=== PATIENT | female | born 1955 | race Asian ===

== ENCOUNTER 2018-12-10 09:31 | Inpatient (IN) | payer MEDICARE, OTHER ==
[2018-12-10] VITALS (7 sets, daily range): BP systolic 105–132; BP diastolic 47–74
[~2018-12-10] VITALS: Ht 160 cm; Wt 83.5 kg
[2018-12-10] MEDS ORDERED: ASPIRIN 81MG TABLET PO ONE (10:00)
[2018-12-10] MEDS ORDERED: HEPARIN 5000 UNITS/ML VIAL IV ONE (10:15)
[2018-12-10] MEDS ORDERED: MORPHINE SULFATE 4 MG/ML CPJ (NOT FOR IM USE) IV ONE (10:15)
[2018-12-10] MEDS ORDERED: IODIXANOL 320MG/ML 200ML BOTTLE ONE (10:23)
[2018-12-10] MEDS ORDERED: IOHEXOL-300 100 ML BOTTLE ONE (10:23)
[2018-12-10] MEDS ORDERED: LIDOCAINE HCL 1% 20ML VIAL (Pyxis) INJ ONE ×2 (10:24→10:54)
[2018-12-10] MEDS ORDERED: FENTANYL CITRATE/PF 50MCG/ML 2ML VIAL ONE (10:31)
[2018-12-10] MEDS ORDERED: MIDAZOLAM HCL 2 MG/2 ML VIAL ONE (10:31)
[2018-12-10 10:36] LABS: BASOPHILS % 0.7 % (0.0-2.0); EOSINOPHILS % 3.9 % (0.0-5.0); HEMATOCRIT. 45.1 % (36.0-48.0); HEMOGLOBIN. 15.1 g/dL (12.0-16.0); LYMPHOCYTES % 40.2 % (20.0-50.0); MEAN CORPUSCULAR HEMOGLOBIN 31.4 pg (28.0-32.0); MEAN CORPUSCULAR VOLUME 93.7 fL (81.0-99.0); MEAN PLATELET VOLUME 8.4 fl (7.4-10.4); MONOCYTES % 8.1 % (2.0-8.0); NEUTROPHILS % 47.1 % (40.0-76.0); PLATELET 232 x1000/uL (130-400); RED BLOOD CELL COUNT 4.81 mill/uL (4.2-5.4); RED CELL DISTRIBUTION WIDTH 13.9 % (11.6-14.6)
[2018-12-10 10:39] LABS: CHLORIDE 105 mEq/L (98-107); INR 1.1; PROTHROMBIN TIME 10.6 sec (9.1-11.1)
[2018-12-10] MEDS ORDERED: ONDANSETRON HCL 4MG/2ML INJ ONE (10:40)
[2018-12-10] MEDS ORDERED: CLONIDINE 0.1MG TABLET PO PRN (11:00)
[2018-12-10] MEDS ORDERED: ATROPINE SULFATE 0.1MG/ML 10ML DISP.SYRIN ONE (11:59)
[2018-12-10] MEDS ORDERED: ACETAMINOPHEN 325MG TABLET PO PRN (12:00)
[2018-12-10] MEDS ORDERED: SODIUM CHLORIDE 0.45% 1,000 ML IV ONE (12:00)
[2018-12-10] MEDS ORDERED: CLOPIDOGREL 75MG TABLET PO ONE (12:00)
[2018-12-10] MEDS ORDERED: ATROPINE SULFATE 1MG/10ML SYR IV PRN (12:00)
[2018-12-10] MEDS ORDERED: ONDANSETRON HCL 4MG/2ML INJ IV PRN (12:00)
[2018-12-10] MEDS ORDERED: HEPARIN SODIUM 1,000 UNIT/1ML VIAL IV ONE (13:52)
[2018-12-10] MEDS: MORPHINE SULFATE 4 MG/ML CPJ (NOT FOR IM USE) IV PRN (17:44)
[2018-12-10] MEDS ORDERED: ATORVASTATIN CALCIUM 40MG TABLET PO SCH (21:00)
[2018-12-11] VITALS (14 sets, daily range): BP systolic 95–154; BP diastolic 41–78
[2018-12-11 07:19] LABS: BASOPHILS % 0.5 % (0.0-2.0); EOSINOPHILS % 3.3 % (0.0-5.0); HEMATOCRIT. 38.7 % (36.0-48.0); HEMOGLOBIN. 12.9 g/dL (12.0-16.0); LYMPHOCYTES % 30.6 % (20.0-50.0); MEAN CORPUSCULAR HEMOGLOBIN 31.5 pg (28.0-32.0); MEAN CORPUSCULAR VOLUME 94.6 fL (81.0-99.0); MEAN PLATELET VOLUME 8.7 fl (7.4-10.4); MONOCYTES % 8.5 % (2.0-8.0); NEUTROPHILS % 57.1 % (40.0-76.0); PLATELET 173 x1000/uL (130-400); RED BLOOD CELL COUNT 4.09 mill/uL (4.2-5.4); RED CELL DISTRIBUTION WIDTH 14.1 % (11.6-14.6)
[2018-12-11 07:23] LABS: CHLORIDE 107 mEq/L (98-107)
[2018-12-11 07:30] LABS: LDL CHOLESTEROL 106 mg/dL (5-100)
[2018-12-11 07:32] LABS: CREATINE KINASE 811 IU/L (26-192); CREATINE KINASE MB FRACTION 49.3 ng/mL (0.5-3.6); HDL CHOLESTEROL 50 mg/dL (40-59)
[2018-12-11] MEDS: ASPIRIN 325MG TABLET PO SCH (08:27)
[2018-12-11] MEDS: CLOPIDOGREL 75MG TABLET PO SCH (08:27)
[2018-12-11] MEDS: METOPROLOL TARTRATE 25MG TABLET PO SCH (09:00)
[2018-12-11] MEDS: MORPHINE SULFATE 4 MG/ML CPJ (NOT FOR IM USE) IV PRN (10:10)
[2018-12-11] MEDS: LOSARTAN POTASSIUM 25 MG TABLET PO SCH ×2 (10:15→20:54)
[2018-12-11 16:35] LABS: HEPATITIS B SURFACE ANTIGEN NEGATIVE
[2018-12-11 17:02] LABS: HEPATITIS A AB IGM NEGATIVE (NEGATIVE)
[2018-12-12] VITALS (9 sets, daily range): BP systolic 116–133; BP diastolic 58–72
[2018-12-12 06:46] LABS: BASOPHILS % 0.8 % (0.0-2.0); EOSINOPHILS % 5.8 % (0.0-5.0); HEMATOCRIT. 38.3 % (36.0-48.0); HEMOGLOBIN. 12.6 g/dL (12.0-16.0); LYMPHOCYTES % 25.2 % (20.0-50.0); MEAN CORPUSCULAR VOLUME 94.5 fL (81.0-99.0); MEAN PLATELET VOLUME 8.5 fl (7.4-10.4); MONOCYTES % 7.9 % (2.0-8.0); NEUTROPHILS % 60.3 % (40.0-76.0); PLATELET 153 x1000/uL (130-400); RED BLOOD CELL COUNT 4.05 mill/uL (4.2-5.4); RED CELL DISTRIBUTION WIDTH 13.5 % (11.6-14.6)
[2018-12-12 07:06] LABS: CHLORIDE 106 mEq/L (98-107)
[2018-12-12] MEDS: METOPROLOL TARTRATE 25MG TABLET PO SCH (09:13)
[2018-12-12] MEDS: CLOPIDOGREL 75MG TABLET PO SCH (09:13)
[2018-12-12] MEDS: LOSARTAN POTASSIUM 25 MG TABLET PO SCH (09:14)
[2018-12-12] MEDS: ASPIRIN 325MG TABLET PO SCH (09:14)
== END 2018-12-12 16:40 | disposition home or self-care (01) | DRG 247 ==
LOC: ER 10:14 → ORIP 10:20 → EDBEDREQ 10:23 → EDBEDREQSVC 10:23 → EDBEDREQTM 10:23 → 3WST 12:26
PROVIDERS: ADMIT Internal Medicine; ATTEND Internal Medicine
PROC: 027036Z Dilation of Coronary Artery, One Artery with Three Drug-eluting Intraluminal Devices, Percutaneous Approach (ICD-10-PCS; principal; 2018-12-10)
PROC: 4A023N7 Measurement of Cardiac Sampling and Pressure, Left Heart, Percutaneous Approach (ICD-10-PCS; 2018-12-10)
PROC: B2111ZZ Fluoroscopy of Multiple Coronary Arteries using Low Osmolar Contrast (ICD-10-PCS; 2018-12-10)
DX: I21.19 ST elevation (STEMI) myocardial infarction involving other coronary artery of inferior wall (principal); I24.9 Acute ischemic heart disease, unspecified; I10 Essential (primary) hypertension; E78.5 Hyperlipidemia, unspecified; E66.9 Obesity, unspecified; E11.9 Type 2 diabetes mellitus without complications; I45.9 Conduction disorder, unspecified; I95.9 Hypotension, unspecified; M54.5 Low back pain; R00.1 Bradycardia, unspecified; Z82.49 Family history of ischemic heart disease and other diseases of the circulatory system; Z98.1 Arthrodesis status; Z79.899 Other long term (current) drug therapy; Z68.32 Body mass index [BMI] 32.0-32.9, adult; Z71.3 Dietary counseling and surveillance
CPT/HCPCS: 36415; 71045; 76700; 80048; 80061; 82550; 82553; 83036; 83735; 83880; 84443; 84484; 85347; 85379; 86705; 86709; 86803; 86850; 86900; 87340; 92928; 93005; 93306; 93458; 96374; 96375; 99291; C1725; C1769; C1874; C1887; C1893; J0461; J1644; J2250; J2270; J2405; J3010; J3490; Q9967